=== PATIENT | male | born 1975 | race Two or more races ===

== ENCOUNTER 2018-05-15 13:44 | Outpatient (CLI) | payer OTHER | END 2018-05-15 13:52 | disposition home or self-care (01) | LOC: RAD 501 13:44 | DX: M54.5 Low back pain (principal) ==

== ENCOUNTER 2018-06-02 12:24 | Outpatient (CLI) | payer OTHER | END 2018-06-02 12:42 | disposition home or self-care (01) | LOC: NUCLEAR 12:24 | DX: I73.9 Peripheral vascular disease, unspecified (principal); I87.2 Venous insufficiency (chronic) (peripheral) ==

== ENCOUNTER → 2018-06-15 | Outpatient (CLI) | payer OTHER | END | disposition home or self-care (01) | LOC: NUCLEAR 06-13 10:00 | DX: I73.9 Peripheral vascular disease, unspecified (principal); I87.2 Venous insufficiency (chronic) (peripheral) ==

== ENCOUNTER 2021-02-23 17:22 | Emergency (ER) | payer OTHER ==
[~2021-02-23] VITALS: Ht 177.8 cm; Wt 99.8 kg
[2021-02-24] MEDS ORDERED: INTESTINEX680 M2 PO (00:44)
[2021-02-24] MEDS ORDERED: CLINDAMYCIN HC300 MG PO (00:44)
[2021-02-24] MEDS ORDERED: NAPROXEN375 MG PO (00:44)
[2021-03-06] MEDS ORDERED: ACETAMINOPHEN650 M2 (13:44)
== END 2021-02-24 01:03 | disposition home or self-care (01) ==
LOC: ER 17:22
DX: J02.9 Acute pharyngitis, unspecified (principal); R50.9 Fever, unspecified; R10.13 Epigastric pain

== ENCOUNTER 2021-09-10 07:18 | Outpatient (CLI) | payer OTHER ==
[~2021-09-10 07:18] MED LIST: ACETAMINOPHEN650 M2; CLINDAMYCIN HC300 MG PO; INTESTINEX680 M2 PO; NAPROXEN375 MG PO
== END 2021-09-10 07:24 | disposition home or self-care (01) ==
LOC: LAB 07:18
DX: U07.1 COVID-19 (principal); B39.1 Chronic pulmonary histoplasmosis capsulati

== ENCOUNTER 2021-09-10 08:08 | Outpatient (CLI) | payer OTHER | END 2021-09-10 13:56 | disposition home or self-care (01) | LOC: NUCLEAR 08:08 | PROVIDERS: ATTEND Internal Medicine Cardiovascular Disease | DX: I20.1 Angina pectoris with documented spasm (principal) ==